=== PATIENT | male | born 1955 | race Caucasian/White ===

== ENCOUNTER 2017-07-11 10:08 | Day surgery (SDC) | payer BC ==
[2017-07-07 08:25] VITALS: BMI 33.4
[2017-07-11] MEDS ORDERED: CEFAZOLIN/Water 2 GM/20 ML SYRINGE ONE (13:54)
[2017-07-11] MEDS ORDERED: Midazolam HCl 2 mg/2 ml Vial ONE (14:42)
[2017-07-11] MEDS ORDERED: Fentanyl 250 MCG/5 ML VIAL ONE (15:22)
[2017-07-11] MEDS ORDERED: Bacitracin Zinc Ointment 30 gm TUBE ONE (15:33)
[2017-07-11] MEDS ORDERED: Sodium Chloride 0.9% 10 ML ONE (15:33)
[2017-07-11] MEDS ORDERED: Bupivacaine PF 0.5% 30 ML VIAL ONE (15:33)
[2017-07-11] MEDS ORDERED: Ondansetron HCl/PF 4 MG/2 ML Vial ONE (16:05)
[2017-07-11] MEDS ORDERED: Propofol 200 MG/20 ML VIAL ONE (16:05)
[2017-07-11] MEDS ORDERED: Dexamethasone 20 MG/5 ML VIAL ONE (16:05)
[2017-07-11] MEDS ORDERED: Lidocaine 2% PF 10 ML AMP (For Epidural Use) ONE (16:05)
[2017-07-11] MEDS ORDERED: Fentanyl 100 MCG/2 ML VIAL ONE ×2 (17:56→17:57)
[2017-07-11] MEDS ORDERED: HYDROcodone/Acetaminophen 5/325 mg Tablet ONE (18:33)
--- NOTE | 2017-07-11 20:12 | RAD ---
RIGHT HAND TWO VIEWS INTRAOPERATIVE FLUOROSCOPY 07/11/17 HISTORY: Hand fracture. FINDINGS/IMPRESSION: Intraoperative fluoroscopy is provided for internal fixation as performed by Dr. Sales. Two spot fluoroscopic images show operative hardware overlying the fifth metatarsal. FLUORO TIME: 23 seconds. POS: [facility]
--- NOTE | 2017-07-12 08:08 | OP ---
SURGEON: Tio Sales M.D. DRYWALL MECHANIC: Larry Vela, [employer]. 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 PROCEDURES PERFORMED: 1. Synovectomy, right metacarpophalangeal joint long finger. 2. Volar capsular release, metacarpophalangeal right long finger. 3. Right long finger metacarpophalangeal joint arthroplasty using right [employer] silicone implan t. TOURNIQUET TIME: 59 minutes. ESTIMATED BLOOD LOSS: 20 mL. INJECTABLE: A 10 mL of 0.5% metacarpophalangeal joint level incision block with 0.5% Marcaine, no e pinephrine. OTHER FINDINGS: Tight palmar capsule and total osteoarthritis with the metacarpal head surface havi ng 90% involvement in the proximal phalanx base having approximately 70% and denudation of cartilage . DESCRIPTION OF PROCEDURE: After successful general LMA technique, the patient had the limb prepped and draped. We then did a timeout and injected the area for an incision which was a curvilinear, av oiding slightly radial the prominence of the MP joint. We carried this through the skin, subcutaneo us tissue made of an excision of retinacular 2 mm to 3 mm retinaculum to repair from the c apsule did a capsulotomy. Then, we released the volar capsule much as we could because the patient had a -20 degree passive extension. Once he had full extension, the capsule released and we began o ur cuts. We made a box type cut completely on the distal end of the metacarpal head including a vol ar cut and maintaining as much collateral as possible. We then tagged the portion of the collateral that was with 3-0 Prolene for later repair back to bone. We then performed a cut with the same saw, oscillating type, 2 to 3 mm of the base of the proximal p halanx including the articular surface, it would down to cancellous bone. We then debrided osteophy sigifredo that were visualized, especially on the posterior volar aspect of the both sides of the joint, t his released the and now we were able to obtain passes without any spring back and 0 degrees e xtension easily. With some spring back we achieved +10. The cut space was more than adequate, and now we began with a starter awl on the both proximal and d istal aspects of the joint, visualized with the C-arm that they were in excellent position and then began progressive hand reaming out with the [employer] implant set intramedullary awls. Once we rey d achieved the best fit size approximately 5, we then placed a trial, balanced the collaterals and t ashanti noticed that this was excellent and maintain length as well. We then removed this, irrigated, c omplete the final prosthesis and then after placing the radial side, pulled down the drill hole and then repair in the mid portion tear of the ulnar side, we were able to get excellent stability and t he prosthesis in excellent position with the long finger still 3 mm longer than the ring finger. The patient then had tourniquet deflated. We repaired the rim of the capsule with a 3-0 Monocryl, w e repaired the retinaculum with the extensor mechanism centralized on the radial side with an interr upted 4-0 Prolene [id number] suture and then we did obtain hemostasis. We then closed the skin with interrupted 4-0 nylon mattress type suture and the patient left the operating room without christa dence of anesthetic or operative complication.
== END 2017-07-12 19:15 | disposition home or self-care (01) ==
LOC: SDC 10:08
PROVIDERS: ATTEND Orthopaedic Surgery Hand Surgery
PROC: 0RQU0ZZ Repair Right Metacarpophalangeal Joint, Open Approach (ICD-10-PCS; principal; 2017-07-11)
PROC: 0RNU0ZZ Release Right Metacarpophalangeal Joint, Open Approach (ICD-10-PCS; principal; 2017-07-11)
PROC: 0RBU0ZZ Excision of Right Metacarpophalangeal Joint, Open Approach (ICD-10-PCS; principal; 2017-07-11)
DX: M19.041 Primary osteoarthritis, right hand (principal); M24.541 Contracture, right hand; K21.9 Gastro-esophageal reflux disease without esophagitis; E78.5 Hyperlipidemia, unspecified; R97.20 Elevated prostate specific antigen [PSA]; I10 Essential (primary) hypertension; Z79.899 Other long term (current) drug therapy; Z88.6 Allergy status to analgesic agent; Z88.8 Allergy status to other drugs, medicaments and biological substances; Z98.1 Arthrodesis status; Z98.890 Other specified postprocedural states
CPT/HCPCS: 76000; 96374; A4216; C1776; J1100; J2001; J2250; J2405; J2704; J3010; J3490; S0020

== ENCOUNTER 2018-02-15 13:45 | Outpatient (CLI) | payer BC ==
[2018-02-15 14:19] LABS: #Basophils 0.1 thou/uL (0.0-0.2); #Eosinphils 0.4 thou/uL (0.0-0.7); #Lymphocytes 1.3 thou/uL (1.20-3.40); #Monocytes 0.6 thou/uL (0.11-0.59); #Neutrophils 3.6 thou/uL (1.40-6.50); %Basophils 1.7 % (0.0-1.0); %Eosinophils 7.3 % (0.0-10.0); %Lymphocytes 21.7 % (21.0-51.0); %Monocytes 10.3 % (0.0-10.0); Hemoglobin 15.1 g/dL (14.0-18.0); Mean Corpuscular HGB CONC 34.4 g/dL (32.0-36.0); Mean Corpuscular Hemoglobin 30.7 pg (27.0-31.0); Mean Corpuscular Volume 89.3 fL (78.0-98.0); Mean Platelet Volume 6.2 fL (7.4-10.4); Platelet Count 241 thou/uL (130-400); RBC Distribution Width 11.7 % (11.5-14.5); Red Blood Cell (RBC) Count 4.92 mill/uL (4.70-6.10); White Blood Cell (WBC) Count 6.1 thou/uL (4.8-10.8)
--- NOTE | 2018-02-15 14:26 | RAD ---
PA AND LATERAL CHEST RADIOGRAPH: Date: 02-15-18 History: Pre-operative evaluation. Comparison: 07-07-17 FINDINGS: Cardiac silhouette and bronchovascular markings are accentuated by the shallow depth of inspiration. There is mild elevation of the right hemidiaphragm. Lungs are otherwise clear. Degenerative changes a re noted in the spine. There has been no significant interval change from prior exam. IMPRESSION: 1. No acute cardiopulmonary process. 2. Mild elevation of right hemidiaphragm. POS: [facility]
[2018-02-15 15:15] LABS: Anion Gap 15 mmol/L (10-20); BUN (Urea Nitrogen) 17 mg/dL (8.4-25.7); Calc. Creatinine Clearance 0 mL/min (70-130); Calcium 8.9 mg/dL (7.8-10.44); Carbon Dioxide 22 mmol/L (23-31); Chloride 106 mmol/L (98-107); Estimated GFR-MDRD 54; Glucose 124 mg/dL (80-115); Sodium 139 mmol/L (136-145)
== END 2018-02-15 13:46 | disposition home or self-care (01) ==
LOC: LABBT 13:45
PROVIDERS: ATTEND Orthopaedic Surgery Hand Surgery
DX: Z01.818 Encounter for other preprocedural examination (principal); M19.041 Primary osteoarthritis, right hand; M72.0 Palmar fascial fibromatosis [Dupuytren]
CPT/HCPCS: 71046; 80048; 85025; 93005; 93010

== ENCOUNTER 2018-02-20 05:47 | Day surgery (SDC) | payer BC ==
[2018-02-15 14:12] VITALS: BMI 33.4
[2018-02-20] MEDS ORDERED: CEFAZOLIN/Water 2 GM/20 ML SYRINGE ONE (06:36)
[2018-02-20] MEDS ORDERED: Bacitracin Zinc Ointment 30 gm TUBE ONE (08:31)
[2018-02-20] MEDS ORDERED: Sodium Chloride 0.9% 10 ML ONE (08:31)
[2018-02-20] MEDS ORDERED: Bupivacaine PF 0.5% 30 ML VIAL ONE (08:31)
[2018-02-20] MEDS ORDERED: Fentanyl 100 MCG/2 ML VIAL ONE (08:39)
[2018-02-20] MEDS ORDERED: Betamet Acet/Betamet Na Ph 30 MG/5 ML VIAL ONE (09:50)
--- NOTE | 2018-02-20 11:15 | OP ---
DATE OF PROCEDURE: 02/20/2018 SURGEON: Tio Sales M.D. PREOPERATIVE DIAGNOSES: 1. Capsular contracture right middle finger. 2. Right Dupuytren's cord middle finger and ring finger. FINDINGS: 1. Very tight Dupuytren's cord extending from the transcarpal ligament all the way to the middle fin vernon and ring finger surrounding A1 brandy then joint capsule of the long finger. 2. Tenosynovitis middle finger flexor digitorum profundus and flexor digitorum superficialis, 2 very tight volar capsule middle finger metacarpophalangeal. PROCEDURE PERFORMED: 1. Neuroplasty digital nerves ring finger and middle finger. 2. Capsulectomy volar with arthrotomy middle finger metacarpophalangeal joint. 3. Subtotal palmar fasciectomy, right hand. 4. Prior surgical scar excision. 5. Flexor digitorum profundus and superficialis tenosynovectomy, radical, right middle finger. SPECIMEN SENT: Dupuytren's cord which was approximately 4 cm long x 8 mm wide. BLOOD LOSS: 10 mL. TOURNIQUET TIME: 40 minutes. INDICATIONS: The patient with progressive loss of motion and thickening of his palmar fascia after p revious A1 brandy release of the long finger. A simultaneous extensive procedure of the long finger where he had developed contractures. He had loss of extension at the long finger metacarpophalangeal joint. DESCRIPTION OF PROCEDURE: After successful general LMA technique, the limb was prepped and draped. Anesthesia was performed by [employer] under general augmented by 20 mL 0.5% Marcaine block 10 given before incision and 10 after. We extended his oblique long finger A1 brandy excision distal ly 1 cm, proximally 3 cm in a zigzag fashion to accommodate the palpable mass. We then carried the i ncision through skin and subcutaneous tissue, identified the proximal half of the mass and from here, performed neuroplasty of the ring and long finger digital nerves both radial and ulnar aspect in ord er to ensure they would be protected throughout the procedure and they were. We then elevated the fa scia beginning with the transcarpal ligament, carrying it distally where it surrounding the flexor te ndon of the long finger and was not quite capsular on the ring finger. It did involve the skin, mult iple sites in the finger which had to be released. We then released the palmar fascia from its entir e cover over the old A1 brandy region into the level of the metacarpophalangeal joint of the of the m iddle finger, slightly worse on the radial side than the ulnar. We had to complete the neuroplasty d istal to this and when we did, we were able to lift out the entire palmar fascia abnormality. The sp ecimen was sent to the lab. We then worked on both sides of the flexor digitorum profundus superficialis of the middle finger, sa w it had marked tenosynovitis, so a radical tenosynovectomy of the flexors was done at this point. N o specimen of this sent. Now, we identified the joint capsule, made a V-shaped capsular incision through the volar plate and t hrough the capsule and identified the caudal surface, freed it without releasing the collateral ligam ents and then extended the finger where it had a -20 degrees stop passively, now I can take it to +20 degrees dorsiflexion easily without spring back. I deflated the tourniquet. Maintain hemostasis. 3 mL of Celestone into the wound in drip technique over the area of the contracture and then obtained hemostasis with the tourniquet deflated. I then c losed the incisions with interrupted 4-0 nylon in mattress pattern and then the final treatment was a pplication of a short arm splint over a bulky dressing with bacitracin and Adaptic. He left the ope rating room without evidence of anesthetic or operative complications.
[2018-02-20] MEDS ORDERED: Lidocaine 1% PF 5 ML VIAL ONE (12:30)
[2018-02-20] MEDS ORDERED: Dexamethasone 20 MG/5 ML VIAL ONE (12:30)
[2018-02-20] MEDS ORDERED: ePHEDrine/0.9% NaCl/PF SYRINGE 50 mg/10 ml ONE (12:30)
[2018-02-20] MEDS ORDERED: Ondansetron HCl/PF 4 MG/2 ML Vial ONE (12:30)
[2018-02-20] MEDS ORDERED: PROPOFOL 200 MG/20 ML VIAL ONE (12:30)
== END 2018-02-20 12:17 | disposition home or self-care (01) ==
LOC: SDC 05:47
PROVIDERS: ATTEND Orthopaedic Surgery Hand Surgery
PROC: 01N60ZZ Release Radial Nerve, Open Approach (ICD-10-PCS; principal; 2018-02-20)
PROC: 0JNJ0ZZ Release Right Hand Subcutaneous Tissue and Fascia, Open Approach (ICD-10-PCS; principal; 2018-02-20)
PROC: 0RBU0ZZ Excision of Right Metacarpophalangeal Joint, Open Approach (ICD-10-PCS; principal; 2018-02-20)
PROC: 01N40ZZ Release Ulnar Nerve, Open Approach (ICD-10-PCS; principal; 2018-02-20)
PROC: 0LT70ZZ Resection of Right Hand Tendon, Open Approach (ICD-10-PCS; principal; 2018-02-20)
DX: M72.0 Palmar fascial fibromatosis [Dupuytren] (principal); M65.841 Other synovitis and tenosynovitis, right hand; M19.041 Primary osteoarthritis, right hand; I10 Essential (primary) hypertension; E78.5 Hyperlipidemia, unspecified; Z88.8 Allergy status to other drugs, medicaments and biological substances; Z79.899 Other long term (current) drug therapy
CPT/HCPCS: 88304; A4216; J0702; J1100; J2001; J2405; J2704; J3010; J3490; S0020

== ENCOUNTER 2018-05-30 10:10 | Outpatient (CLI) | payer BC ==
--- NOTE | 2018-05-30 11:10 | RAD ---
TWO VIEWS LUMBAR SPINE: Comparison: 09-01-16 History: Lumbar disc degeneration. FINDINGS: Five lumbar type vertebral bodies. Mild degenerative disc disease at L3-4 and L5-S1. Unilateral trans pedicular screw at L5-S1. No perihardware lucency. No loss of intervertebral height. No changes in al ignment. Laminectomy defect at L2. IMPRESSION: Stable post-surgical change. POS: [facility]
[2018-05-30] MEDS ORDERED: Gadobenate Dimeglumine 529 MG/1 ML (20ML VIAL) ONE (12:55)
--- NOTE | 2018-05-30 14:26 | MRI ---
CT CERVICAL SPINE: History: Neck pain. M54.2 Technique: Multiplanar, multisequence noncontrast enhanced MRI images were obtained of the cervical s pine. FINDINGS: Images demonstrate the spinal cord to be unremarkable with no evidence of masses or lesions. C1-2: Unremarkable. C2-3: Unremarkable. C3-4: Unremarkable. C4-5: Disc desiccation is seen. There is a broad based disc osteophyte complex centrally compressing the thecal sac resulting in a moderate degree of thecal sac compression. There are moderate to severe bilateral C4-5 neural foraminal narrowing due to uncal vertebral osteophyte hypertrophy. C5-6: Disc desiccation is seen. There is a broad based disc osteophyte complex centrally compressing the thecal sac resulting in a moderate degree of central and lateral recess stenosis. There is modera te to severe right C5-6 and moderate C5-6 neural foraminal narrowing due to uncal vertebral osteophyt e hypertrophy. C6-7: There is a broad based central disc osteophyte complex extending into the right C6-7 lateral re cess. This results in mild central and right paracentral spinal stenosis. The neural foramen are sy nt. C7-T1: Mild broad based disc bulge is seen. Neural foramina are patent. IMPRESSION: 1. C4-5, C5-6 and C6-7 disc osteophyte complexes with central and neural foraminal narrowing as descr ibed above. POS: [facility]
--- NOTE | 2018-05-30 15:15 | MRI ---
PRE AND POSTCONTRAST ENHANCED MRI IMAGES LUMBAR SPINE 05/30/18 HISTORY: Lumbar disc degenerative, M51.36. Multiplanar and multisequence pre and postcontrast enhanced MRI images lumbar spine obtained. Compari son made to previous exam from 05/11/16. For the purposes of this dictation, the last freely mobile vertebral body will be considered to be th e L5 vertebral body, all other vertebral bodies numbered according to this. RADIOGRAPHIC FINDINGS: T12-L1: Unremarkable. L1-2: Mild facet hypertrophy is seen. The central canal and neural foramen are patent. L2-3: Mild bilateral facet hypertrophy is seen. The central canal and neural foramen are patent. L3-4: Disc space height loss is seen. There is a broad based disc bulge with bilateral facet hypertro phy. The patient has had previous L3 laminectomy. A small amount of fluid is seen in the L3-4 facet j oints. No significant evidence of epidural scarring or evidence of recurrent disc herniation seen. L4-5: There is a broad based disc bulge without evidence of significant central stenosis. This minima l central stenosis seen is due to facet hypertrophy. The neural foramen are patent. L5-S1: L5 and S1 surgical hardware is seen in the right pedicles. There is disc space height loss at this level. End plate Modic type II changes seen in the inferior end plate of L5. This is unchanged s gareth the previous comparison exam. Minimal lateral recess stenosis seen. Bilateral facet hypertrophy is seen. Mild bilateral neural foraminal narrowing seen. IMPRESSION: Right L5-S1 surgical hardware placement without evidence of significant interval changes otherwise. POS: [facility]
== END 2018-05-30 10:11 | disposition home or self-care (01) ==
LOC: TBSIIMAG 10:10
PROVIDERS: ATTEND Neurological Surgery
DX: M51.36 Other intervertebral disc degeneration, lumbar region (principal); M54.2 Cervicalgia; M48.02 Spinal stenosis, cervical region; M99.81 Other biomechanical lesions of cervical region; M25.78 Osteophyte, vertebrae; Z98.890 Other specified postprocedural states
CPT/HCPCS: 72100; 72141; 72158; 82565; A9579

== ENCOUNTER 2018-07-23 06:27 | Day surgery (SDC) | payer BC ==
[2018-07-18 13:42] VITALS: BMI 32.6
[2018-07-23] MEDS ORDERED: Sodium Chloride 0.9% 10 ML ONE (06:50)
[2018-07-23 07:10] LABS: #Basophils 0.1 thou/uL (0.0-0.2); #Eosinphils 0.5 thou/uL (0.0-0.7); #Lymphocytes 1.3 thou/uL (1.20-3.40); #Monocytes 0.8 thou/uL (0.11-0.59); #Neutrophils 4.4 thou/uL (1.40-6.50); %Basophils 0.7 % (0.0-1.0); %Eosinophils 7.3 % (0.0-10.0); %Lymphocytes 18.3 % (21.0-51.0); %Monocytes 11.3 % (0.0-10.0); %Neutrophils 62.4 % (42.0-75.0); Hemoglobin 15.7 g/dL (14.0-18.0); Mean Corpuscular HGB CONC 33.3 g/dL (32.0-36.0); Mean Corpuscular Volume 90.2 fL (78.0-98.0); Mean Platelet Volume 6.7 fL (7.4-10.4); Platelet Count 268 thou/uL (130-400); RBC Distribution Width 11.8 % (11.5-14.5); Red Blood Cell (RBC) Count 5.22 mill/uL (4.70-6.10); White Blood Cell (WBC) Count 7.1 thou/uL (4.8-10.8)
[2018-07-23] MEDS ORDERED: CEFAZOLIN 2 GM/50 ML BAG ONE (07:13)
[2018-07-23 07:22] LABS: Anion Gap 10 mmol/L (10-20); BUN (Urea Nitrogen) 12 mg/dL (8.4-25.7); Calc. Creatinine Clearance 100 mL/min (70-130); Calcium 9.2 mg/dL (7.8-10.44); Carbon Dioxide 27 mmol/L (23-31); Chloride 105 mmol/L (98-107); Estimated GFR-MDRD 71; Glucose 106 mg/dL (80-115); Potassium 3.9 mmol/L (3.5-5.1); Sodium 138 mmol/L (136-145)
[2018-07-23] MEDS ORDERED: Fentanyl 250 MCG/5 ML VIAL ONE (08:19)
--- NOTE | 2018-07-23 09:58 | OP ---
DATE OF PROCEDURE: 07/23/2018 SURGEON: Richie Perez M.D. KNOT TYING OPERATOR: Bhavik Anglin PA-C. PROCEDURES PERFORMED: Anterior cervical discectomy at C4-C5 and C5-C6, interbody arthrodesis, interv ertebral biomechanical device, local morselized autograft, demineralized bone matrix, anterior titani um instrumentation C4-C6. PROCEDURE IN DETAIL: The patient was brought into the operating room and intubated. He was position ed supine in modest extension on a gel-filled donut. Incision was made in the right precervical area and dissecting medial to sternocleidomastoid muscle, identified the anterior cervical spine and our level was confirmed by x-ray. We debrided anterior osteophytes, placed distraction across the disc s paces, and completely removed the intervertebral discs. At C5-C6, there was a fair amount of autofus ion especially posteriorly that was difficult to debride. Next, the bony endplates were decorticated for the purpose of arthrodesis and appropriately sized intervertebral biomechanical PEEK device was brought into the field, filled with demineralized bone matrix, local morselized autograft, and tapped into place securely at C4-C5 and C5-C6. At C5-C6, because the posterior disc space was so narrowed, the interbody device is somewhat protuberant, but seems secured. Next, an anterior plate was leighann t in the field and secured to C4, C5, and C6 using two 14 mm screws at each level. The wound was the n extensively irrigated, immaculate hemostasis was secured and the wound was closed in anatomic layer s.
[2018-07-23] MEDS ORDERED: HYDROmorphone 2 MG/ML VIAL ONE (10:04)
[2018-07-23] MEDS ORDERED: HYDROcodone/Acetaminophen 5/325 mg Tablet ONE ×2 (12:03→17:30)
[2018-07-23] MEDS ORDERED: Ondansetron PF 4 MG/2 ML Vial ONE (12:19)
[2018-07-23] MEDS ORDERED: ePHEDrine/0.9% NaCl/PF SYRINGE 50 mg/10 ml ONE (12:19)
[2018-07-23] MEDS ORDERED: Glycopyrrolate 0.2 MG/ML 5 ML SYRINGE ONE (12:19)
[2018-07-23] MEDS ORDERED: Dexamethasone 20 MG/5 ML VIAL ONE (12:19)
[2018-07-23] MEDS ORDERED: PROPOFOL 200 MG/20 ML VIAL ONE (12:19)
[2018-07-23] MEDS ORDERED: Lidocaine 1% PF 5 ML VIAL ONE (12:19)
[2018-07-23] MEDS ORDERED: Tamsulosin HCl 0.4 MG CAP ONE (16:47)
--- NOTE | 2018-07-23 19:19 | EKG ---
Test Reason : PREOP Blood Pressure : / mmHG Vent. Rate : 063 BPM Atrial Rate : 063 BPM P-R Int : 178 ms QRS Dur : 090 ms QT Int : 428 ms P-R-T Axes : 053 -16 009 degrees QTc Int : 437 ms Normal sinus rhythm Cannot rule out Inferior infarct (cited on or before 15-FEB-2018) Abnormal ECG When compared with ECG of 15-FEB-2018 14:03, Nonspecific T wave abnormality no longer evident in Anterior leads Confirmed by TIFFANIE ERNANDEZ, SFavian ([id number]) on 07/23/2018 7:19:29 PM Referred By: SUE Confirmed By:DR. Lexy MORENO MD
== END 2018-07-23 18:16 | disposition home or self-care (01) ==
LOC: SDC 06:27
PROVIDERS: ATTEND Neurological Surgery
PROC: 0RG20A0 Fusion of 2 or more Cervical Vertebral Joints with Interbody Fusion Device, Anterior Approach, Anterior Column, Open Approach (ICD-10-PCS; principal; 2018-07-23)
PROC: 0RG20K0 Fusion of 2 or more Cervical Vertebral Joints with Nonautologous Tissue Substitute, Anterior Approach, Anterior Column, Open Approach (ICD-10-PCS; principal; 2018-07-23)
PROC: 0RG2070 Fusion of 2 or more Cervical Vertebral Joints with Autologous Tissue Substitute, Anterior Approach, Anterior Column, Open Approach (ICD-10-PCS; principal; 2018-07-23)
DX: M50.121 Cervical disc disorder at C4-C5 level with radiculopathy (principal); I10 Essential (primary) hypertension; E78.5 Hyperlipidemia, unspecified; Z88.8 Allergy status to other drugs, medicaments and biological substances; Z79.899 Other long term (current) drug therapy
CPT/HCPCS: 36415; 76001; 80048; 85025; 93005; 93010; 96374; C1713; C1776; J1100; J1170; J2001; J2405; J2704; J3010; J3490

== ENCOUNTER 2018-08-07 15:52 | Outpatient (CLI) | payer BC ==
--- NOTE | 2018-08-07 19:28 | RAD ---
FOUR VIEWS OF THE CERVICAL SPINE 08/07/18 HISTORY: Neck pain. Followup surgery. FINDINGS: C1 to cervicothoracic junction is seen on the lateral and swimmer's view of the cervical spine. Posts urgical changes related to anterior cervical fusion with anterior plate and screws transfixing C4-5 a nd C5-6 levels. Intradiscal prosthesis are seen at these levels. No hardware complication is apprecia rosa. Vertebral body heights are within normal limits and no fracture or subluxation is appreciated. T here is mild prominence of the of the prevertebral soft tissues anterior to the upper cervical spine which is probably related to the recent postsurgical changes. IMPRESSION: Postoperative changes cervical spine. POS: [facility]
== END 2018-08-07 15:53 | disposition home or self-care (01) ==
LOC: TBSIIMAG 15:52
PROVIDERS: ATTEND Neurological Surgery
DX: M54.2 Cervicalgia (principal); Z98.1 Arthrodesis status
CPT/HCPCS: 72040

== ENCOUNTER 2018-09-18 12:59 | Outpatient (CLI) | payer BC ==
--- NOTE | 2018-09-18 14:43 | RAD ---
CERVICAL SPINE SERIES THREE VIEWS: History: Post op. Comparison: 08-07-18 FINDINGS: Vertebral bodies are normal in height. Anterior cervical fusion with plate and screws is noted at the C4, C5, and C6 levels. Markers of the disc implants are within the confines of the disc levels. No s oft tissue swelling. IMPRESSION: Stable post op changes of the spine. POS: [facility]
== END 2018-09-18 13:00 | disposition home or self-care (01) ==
LOC: TBSIIMAG 12:59
PROVIDERS: ATTEND Neurological Surgery
DX: M50.30 Other cervical disc degeneration, unspecified cervical region (principal); Z98.890 Other specified postprocedural states
CPT/HCPCS: 72040

== ENCOUNTER 2023-02-15 12:34 | Outpatient (CLI) | payer MEDICARE, OTHER ==
[2023-02-15 13:34] LABS: Hemoglobin 14.7 g/dL (13.5-17.5); Mean Corpuscular HGB CONC 33.3 g/dL (32.0-36.0); Mean Corpuscular Hemoglobin 29.6 pg (27.0-33.0); Mean Corpuscular Volume 88.9 fl (81.2-95.1); Mean Platelet Volume 9.1 fl (7.4-10.4); Platelet Count 261 10x3/uL (150-450); RBC Distribution Width 12.8 % (11.5-14.5); Red Blood Cell (RBC) Count 4.97 10x6/uL (4.32-5.72)
[2023-02-15 13:57] LABS: PTT 28.9 sec (22.0-33.0); Prothrombin Time 10.5 sec (9.5-12.1)
[2023-02-15 13:59] LABS: Anion Gap 12 mmol/L (10-20); BUN (Urea Nitrogen) 15 mg/dL (8.4-25.7); Calc. Creatinine Clearance 0 mL/min (70-130); Calcium 9.2 mg/dL (7.8-10.44); Carbon Dioxide 27 mmol/L (23-31); Chloride 101 mmol/L (98-107); Estimated GFR 74; Glucose 106 mg/dL (80-115); Potassium 3.9 mmol/L (3.5-5.1); Sodium 136 mmol/L (136-145)
== END 2023-02-15 12:35 | disposition home or self-care (01) ==
LOC: LABBT 12:34
PROVIDERS: ATTEND Urology
DX: Z01.818 Encounter for other preprocedural examination (principal); N47.1 Phimosis
CPT/HCPCS: 80048; 85027; 85610; 85730; 93005; 93010

== ENCOUNTER 2023-05-08 08:39 | Outpatient (CLI) | payer MEDICARE, OTHER | END 2023-05-08 08:40 | disposition home or self-care (01) | LOC: BICMRI 08:39 | PROVIDERS: ATTEND Orthopaedic Surgery | DX: M24.812 Other specific joint derangements of left shoulder, not elsewhere classified (principal); M75.102 Unspecified rotator cuff tear or rupture of left shoulder, not specified as traumatic; S43.432A Superior glenoid labrum lesion of left shoulder, initial encounter; M19.012 Primary osteoarthritis, left shoulder ==

== ENCOUNTER 2023-05-12 20:08 | Emergency (ER) | payer MEDICARE, OTHER ==
[2023-05-12] MEDS ORDERED: Ondansetron ODT 4 MG TAB ONE (21:45)
[2023-05-12] MEDS ORDERED: Morphine 4 MG/ML VIAL ONE (21:45)
== END 2023-05-12 22:12 | disposition home or self-care (01) ==
LOC: ERS 20:08
DX: G56.00 Carpal tunnel syndrome, unspecified upper limb (principal); E78.00 Pure hypercholesterolemia, unspecified; I10 Essential (primary) hypertension; Z79.899 Other long term (current) drug therapy
CPT/HCPCS: 96372; 99283; J2270; Q0162

== ENCOUNTER 2023-06-14 12:11 | Day surgery (SDC) | payer MEDICARE, OTHER ==
[2023-06-12 09:25] VITALS: BMI 31.9
[2023-06-14] MEDS ORDERED: Sodium Chloride 0.9% 100 ML ONE (16:28)
[2023-06-14] MEDS ORDERED: CEFAZOLIN 2 GM VIAL ONE (16:28)
[2023-06-14] MEDS ORDERED: PROPOFOL 200 MG/20 ML VIAL ONE (16:43)
[2023-06-14] MEDS ORDERED: Ondansetron PF 4 MG/2 ML Vial ONE (16:43)
[2023-06-14] MEDS ORDERED: Lidocaine 1% (PF) 30 ML VIAL ONE (17:01)
[2023-06-14] MEDS ORDERED: PROPOFOL 20 ML ONE (17:07)
== END 2023-06-14 18:50 | disposition home or self-care (01) ==
LOC: SDC 12:11
PROVIDERS: ATTEND Orthopaedic Surgery
PROC: 01N50ZZ Release Median Nerve, Open Approach (ICD-10-PCS; principal; 2023-06-14)
DX: G56.03 Carpal tunnel syndrome, bilateral upper limbs (principal); S43.432A Superior glenoid labrum lesion of left shoulder, initial encounter; M75.112 Incomplete rotator cuff tear or rupture of left shoulder, not specified as traumatic; M19.012 Primary osteoarthritis, left shoulder; Z88.8 Allergy status to other drugs, medicaments and biological substances; X58.XXXA Exposure to other specified factors, initial encounter; I10 Essential (primary) hypertension; K21.9 Gastro-esophageal reflux disease without esophagitis; Z79.899 Other long term (current) drug therapy
CPT/HCPCS: J2001; J2405; J2704; J3490

== ENCOUNTER 2023-07-12 06:42 | Day surgery (SDC) | payer MEDICARE, OTHER ==
[2023-07-10 15:38] VITALS: BMI 31.9
[2023-07-12] MEDS ORDERED: Lidocaine 1% (PF) 30 ML VIAL ONE ×2 (09:46→10:54)
[2023-07-12] MEDS ORDERED: Dexamethasone 4 mg/ml Vial ONE (09:50)
[2023-07-12] MEDS ORDERED: fentaNYL 50 mcg/mL 1 mL Vial ONE ×2 (09:50→11:54)
[2023-07-12] MEDS ORDERED: PROPOFOL 20 ML ONE (09:50)
[2023-07-12] MEDS ORDERED: Ondansetron PF 4 MG/2 ML Vial ONE ×2 (09:50→10:00)
[2023-07-12] MEDS ORDERED: Lidocaine 1% PF 5 ML VIAL ONE ×2 (09:50→10:00)
[2023-07-12] MEDS ORDERED: Sodium Chloride 0.9% 100 ML ONE (09:55)
[2023-07-12] MEDS ORDERED: CEFAZOLIN 2 GM VIAL ONE (09:55)
[2023-07-12] MEDS ORDERED: PROPOFOL 200 MG/20 ML VIAL ONE (10:00)
[2023-07-12] MEDS ORDERED: Dexamethasone 20 MG/5 ML VIAL ONE (10:00)
[2023-07-12] MEDS ORDERED: ePHEDrine Sulfate 50 MG/10 ML VIAL ONE ×2 (10:00→10:40)
[2023-07-12] MEDS ORDERED: methylPREDNISolone Acetate 40 mg/ml Vial ONE (10:54)
[2023-07-12] MEDS ORDERED: HYDROcodone/Acetaminophen 5/325 mg Tablet ONE (12:28)
== END 2023-07-12 12:43 | disposition home or self-care (01) ==
LOC: SDC 06:42
PROVIDERS: ATTEND Orthopaedic Surgery
PROC: 01N50ZZ Release Median Nerve, Open Approach (ICD-10-PCS; principal; 2023-07-12)
PROC: 3E0U3GC Introduction of Other Therapeutic Substance into Joints, Percutaneous Approach (ICD-10-PCS; 2023-07-12)
DX: G56.01 Carpal tunnel syndrome, right upper limb (principal); M25.811 Other specified joint disorders, right shoulder; I10 Essential (primary) hypertension; E78.5 Hyperlipidemia, unspecified; K21.9 Gastro-esophageal reflux disease without esophagitis; Z88.8 Allergy status to other drugs, medicaments and biological substances
CPT/HCPCS: 20610; 64721; J3010; J1030; J1100; J2001; J2405; J2704; J3490

== ENCOUNTER 2023-08-10 08:37 | Outpatient (CLI) | payer MEDICARE, OTHER | END 2023-08-10 08:38 | disposition home or self-care (01) | LOC: BICMRI 08:37 | PROVIDERS: ATTEND Neurological Surgery | DX: M50.11 Cervical disc disorder with radiculopathy, high cervical region (principal) | CPT/HCPCS: 72141 ==

== ENCOUNTER 2024-08-23 13:39 | Outpatient (CLI) | payer MEDICARE | END 2024-08-23 13:40 | disposition home or self-care (01) | LOC: BICMRI 13:39 | PROVIDERS: ATTEND Orthopaedic Surgery | DX: M75.102 Unspecified rotator cuff tear or rupture of left shoulder, not specified as traumatic (principal); M19.012 Primary osteoarthritis, left shoulder; M77.8 Other enthesopathies, not elsewhere classified; R60.0 Localized edema ==